=== PATIENT | male | born 1955 | race Caucasian/White ===

== ENCOUNTER 2022-05-23 09:30 | Emergency (ER) | payer MEDICARE, OTHER, SELFPAY ==
--- NOTE | ~2022-05-23 | XR_ITS ---
Lumbosacral Spine: AP and lateral views Clinical History: Pain Findings: The normal lordotic curve is maintained. The vertebral bodies and posterior elements are i ntact. The intervertebral disc spaces are preserved. The sacroiliac joints are normally outlined. Impression: No significant abnormality. Reviewed, dictated and finalized at [facility]. LIANCE AUDITOR Impression: No significant abnormality.
--- NOTE | ~2022-05-23 | XR_ITS ---
AP lateral views of the right hip Clinical history: Pain Findings: No acute fracture or dislocation is seen. Osseous alignment is anatomic. Bilateral hip and SI joint spaces are preserved. Soft tissues are unremarkable. Impression: No significant abnormality is seen. Reviewed, dictated and finalized at location M. [employer] INFORMATICS SPECIALIST Impression: No significant abnormality is seen.
[2022-05-23 09:44] VITALS: BP 138/88; PULSE 81; RESP 20; TEMP 36.5; O2SAT 98
[2022-05-23] MEDS: HYDROcodone/acetaminophen (*CRX) 5-325 MG TABLET 1 TAB PO (10:44)
[2022-05-23 11:14] VITALS: TEMP 36.5
--- NOTE | 2022-05-23 11:40 | ED.GENADULT ---
HPI - General Adult General Chief complaint: Extremity Problem,Nontraumatic Stated complaint: RLE pain Time Seen by Provider: 05/23/22 10:05 Source: patient Mode of arrival: ambulatory Limitations: no limitations History of Present Illness HPI narrative: 66-year-old with a history of hyperlipidemia here with complaints of right hip and right lower back pain for past few days. He denies any trauma. He states the pain was quite intense last night. He denies any bladder or bowel incontinence. No history of blood in the urine. Onset (ago): week(s) (1) Location: lower extremity (Right hip) Radiation: back and extremity Severity: moderate Quality: aching Pain Consistency: constant Relieving factors: none Exacerbating factors: none Associated symptoms: denies other symptoms Related Data Allergies Allergy/AdvReac Type Severity Reaction Status Date / Time No Known Allergies Allergy Mild Verified 05/23/22 09:46 Review of Systems Review of Systems: All systems reviewed & are unremarkable except as noted in HPI and below Constitutional: Constitutional: Reports no additional constitutional complaints Eyes: Eyes: Reports no additional eye complaints ENT: Reports system reviewed and no additional complaints, except as documented Cardiovascular: Cardiovascular: Reports no additional cardiovascular complaints Respiratory: Respiratory: Reports no additional respiratory complaints Gastrointestinal: Gastrointestinal: Reports no additional gastrointestinal complaints Musculoskeletal: Musculoskeletal: Reports as per HPI Neurologic: Reports system reviewed and no additional complaints, except as documented Psychiatric: Psychiatric: Reports no additional psychiatric complaints Exam Narrative: GENERAL: Well-appearing, well-nourished, and in no acute distress. HEAD: Normocephalic, atraumatic. EYES: PERRLA and EOMI. NECK: Supple. CHEST: Clear to auscultation. No respiratory distress. HEART: Regular rate and rhythm. No murmur heard. Normal peripheral pulses. ABDOMEN: Soft, nontender, nondistended, normal active bowel sounds. EXTREMITIES: Normal range of motion. No edema. SLR negative on both sides. SKIN: Warm, dry, no rash. NEURO: No focal deficits. Alert and oriented x3. PSYCH: Normal mood and affect. Course Course Emergency Course: 66-year-old here with complaints right lower back pain radiating into his posterior and lateral aspect of the pain. No history of trauma is exam is unremarkable. X-ray of the lumbar spine and hip was obtained both were unremarkable I suspect this pain most likely could be sciatica pain. Patient is presently feeling slightly better with p.o. [facility] advised him to take Medrol Dosepak and pain medication for few days and follow-up with his primary doctor Vital Signs Vital signs: Vital Signs Temperature 36.5 C 05/23/22 09:44 Pulse Rate 81 05/23/22 09:44 Respiratory Rate 20 05/23/22 09:44 Blood Pressure 138/88 05/23/22 09:44 Pulse Oximetry 98 05/23/22 09:44 Oxygen Delivery Room Air 05/23/22 09:44 Temperature 36.5 C 05/23/22 09:44 Pulse Rate 81 05/23/22 09:44 Respiratory Rate 20 05/23/22 09:44 Blood Pressure 138/88 05/23/22 09:44 Pulse Oximetry 98 05/23/22 09:44 Oxygen Delivery Room Air 05/23/22 09:44 Medical Decision Making MDM Narrative Medical decision making narrative: 66-year-old with low back pain radiating into his hip and thigh area suspect more sciatic pain however will obtain x-ray of the lumbar and hip . Control his pain with p.o. [facility]. Differential Diagnosis Differential Diagnosis: DJD of the lumbar spine, hip arthralgia Medical Records Medical records reviewed: Yes I reviewed the external patient's medical records. Vital Signs Vital Signs: Vital Signs Temperature 36.5 C 05/23/22 09:44 Pulse Rate 81 05/23/22 09:44 Respiratory Rate 20 05/23/22 09:44 Blood Pressure 138/88 05/23/22 09:44 Pulse Oximetry 98 05/23/22
[2022-05-23 12:18] VITALS: BP 148/85; PULSE 59; RESP 18; O2SAT 98
== END 2022-05-23 12:21 | disposition home or self-care (01) ==
PROVIDERS: Emergency Provider Family Medicine; PCP Physician Assistant
DX: M54.41 Lumbago with sciatica, right side (principal); E78.5 Hyperlipidemia, unspecified
CPT/HCPCS: 72110; 73502; 99284; A9270

== ENCOUNTER 2022-10-14 10:25 | Emergency (ER) | payer MEDICARE, OTHER, SELFPAY ==
[2022-10-14 10:36] VITALS: BP 136/77; PULSE 74; RESP 12; TEMP 36.3; O2SAT 100
[2022-10-14 10:37] VITALS: BP 136/77; PULSE 74; RESP 12; TEMP 36.3; O2SAT 100
--- NOTE | 2022-10-14 10:56 | ED.URI ---
HPI - URI/Sore Throat General Chief Complaint: Upper Respiratory Infection Stated Complaint: SOB; dizziness; shakiness Time Seen by Provider: 10/14/22 10:56 Source: patient Mode of arrival: ambulatory Limitations: no limitations History of Present Illness HPI Narrative: 66-year-old male presents with complaint sinus congestion, pressure, headaches, nasal congestion for the past 10 days. Using an payj-hvz-[id number] sinus medication, nasal spray with no relief of symptoms. I think Claritin daily. Afebrile. Reports he is claustrophobic and a feeling of not being able to breathe out of his nose makes him feel panicky. All systems reviewed and negative except as noted above. Related Data Home Medications Medication Instructions Recorded Confirmed omeprazole 40 mg capsule,delayed mg 10/14/22 release rosuvastatin 5 mg tablet mg 10/14/22 Allergies Allergy/AdvReac Type Severity Reaction Status Date / Time No Known Allergies Allergy Mild Verified 10/14/22 10:37 Review of Systems Review of Systems: CONSTITUTIONAL: Denies fever, chills, or sweats. reports fatigue. EYES: Denies visual changes, redness, or discharge. ENT: Reports rhinorrhea, congestion, sinus pressure and pain. Denies sore throat, or otalgia. CARDIOVASCULAR: Denies chest pain, palpitations, or edema. RESPIRATORY: Denies cough or dyspnea. GASTROINTESTINAL: Denies abdominal pain, nausea, vomiting, or diarrhea. GENITOURINARY: Denies dysuria or hematuria. SKIN: Denies rash or itching. MUSCULOSKELETAL: Denies back pain, joint pain, or myalgia. NEUROLOGIC: reports headache. Denies numbness, or weakness. PSYCHIATRIC: Denies anxiety or depression. All other systems reviewed are negative, except as documented in HPI. PMFSH Comments At time of signature, agree with nursing past medical, surgical, social and family history. There is no relevant family history pertinent to the presenting complaint. Exam Narrative: GENERAL: This is a well-nourished, well-developed patient, in no apparent distress. HEAD: normocephalic, atraumatic. EYES: PERRL. Sclera clear/white. Vision is grossly intact. EARS: External ears normal, auditory canals clear and without drainage, fluid to bilateral TM without erythema. NOSE: External nose normal with Purulence nasal drainage, erythema and swelling to both nares. Bilateral maxillary sinus tenderness. THROAT: Mucous membranes moist, erythema, postnasal drainage Posterior pharynx. NECK: Neck supple, non-tender without lymphadenopathy, masses or thyromegaly. CARDIOVASCULAR: Regular rate and rhythm without murmurs, gallops, or rubs. RESPIRATORY: Clear to auscultation. Breath sounds equal bilaterally. No wheezes, rales, or rhonchi. SKIN: warm, Dry, intact with no suspicious lesions or rash, good texture and turgor. NEURO: awake, alert, and oriented to person, place and time. There were no obvious focal neurologic abnormalities. EXTREMITIES: No joint tenderness, effusion, or edema noted. Course Course Level of Care: Express Care Visit Vital Signs Vital signs: Vital Signs Temperature 36.3 C L 10/14/22 10:36 Pulse Rate 74 10/14/22 10:36 Respiratory Rate 12 10/14/22 10:36 Blood Pressure 136/77 10/14/22 10:36 Pulse Oximetry 100 10/14/22 10:36 Oxygen Delivery Room Air 10/14/22 10:36 Temperature 36.3 C L 10/14/22 10:37 Pulse Rate 74 10/14/22 10:37 Respiratory Rate 12 10/14/22 10:37 Blood Pressure 136/77 10/14/22 10:37 Pulse Oximetry 100 10/14/22 10:37 Oxygen Delivery Room Air 10/14/22 10:37 Reviewed MDM - URI/Sore Throat MDM Narrative Medical decision making narrative: Patient is aware of diagnosis, understands and agrees to treatment plan. Anticipatory guidance given. Patient agrees to follow-up as directed and is aware of reasons to seek care at the emergency department. Portions of this record may have been created with voice recognition software wi
== END 2022-10-14 11:04 | disposition home or self-care (01) ==
PROVIDERS: Emergency Provider Nurse Practitioner Family; PCP Physician Assistant
DX: J01.90 Acute sinusitis, unspecified (principal); E78.00 Pure hypercholesterolemia, unspecified; K21.9 Gastro-esophageal reflux disease without esophagitis
CPT/HCPCS: 99213; G0463

== ENCOUNTER 2024-03-22 11:00 | Emergency (ER) | payer MEDICARE, OTHER, SELFPAY ==
--- NOTE | ~2024-03-22 | XR_ITS ---
EXAMINATION: XR ankle RT min 3V DATE: 03/22/2024 11:56 INDICATION: Right ankle pain. TECHNIQUE: 3 views of right ankle were obtained. COMPARISON: None. FINDINGS: Alignment is normal. No fracture. Joint spaces are normal. There is an enthesophyte at the posterior aspect of calcaneal tuberosity. IMPRESSION: 1. No fracture. Reviewed, dictated and finalized at location A. IMPRESSION: 1. No fracture.
[2024-03-22 11:10] VITALS: BP 117/74; PULSE 67; RESP 19; TEMP 36.4; O2SAT 100
--- NOTE | 2024-03-22 12:00 | ED_ITS ---
HPI - Extremity Problem General Chief complaint: Extremity Problem,Nontraumatic Stated complaint: Right Ankle Irritation Time Seen by Provider: 03/22/24 12:00 History of Present Illness HPI Narrative: Patient reports nontraumatic right ankle pain for 6-9 months. He reports that he tried to get appointment with his primary care provider, was advised to come to Urgent Care for x-ray of affected ankle. Patient has not been taking anything for his symptoms Related Data Home Medications Medication Instructions Recorded Confirmed omeprazole 40 mg capsule,delayed 40 mg PO DAILY 10/14/22 03/22/24 release rosuvastatin 5 mg tablet 5 mg PO DAILY 10/14/22 03/22/24 Allergies Allergy/AdvReac Type Severity Reaction Status Date / Time No Known Allergies Allergy Mild Verified 03/22/24 11:11 Review of Systems Review of Systems: All systems reviewed & are unremarkable except as noted in HPI and below Constitutional: Constitutional: Reports no additional constitutional complaints ENT: Reports system reviewed and no additional complaints, except as documented Cardiovascular: Cardiovascular: Reports no additional cardiovascular complaints Respiratory: Respiratory: Reports no additional respiratory complaints Gastrointestinal: Gastrointestinal: Reports no additional gastrointestinal complaints Musculoskeletal: Musculoskeletal: Reports no additional musculoskeletal complaints and Reports as per HPI Exam Const: General: cooperative, no acute distress, alert and awake Orientation/consciousness: oriented to person, oriented to place and oriented to time HENMT: Head: normal to inspection Resp: Effort & Inspection: normal respiratory effort and able to speak in complete sentences Auscultation: clear to auscultation bilaterally, no crackles, no rales, no rhonchi and no wheezes Cardio: Palpation: normal PMI Rate: regular rate Rhythm: regular rhythm Heart sounds: S1 normal heart sound present and S2 normal heart sound present Skin: General skin exam: normal color and no rashes or lesions noted Neuro: General: oriented to person, oriented to place and oriented to time Cranial nerves: Yes CN's II-XII intact bilaterally Extrem: Right lower extremity: normal to inspection, full ROM, normal capillary refill and ankle Details: normal to inspection and normal ROM; no tenderness, no swelling, edema, no unusual warmth, no ecchymosis and achilles tendon exam normal; no edema and joint enlargement noted Psych: Appearance: grossly normal Thought process: Normal thought process present Insight: Good insight present (Psych) Judgement: Good judgement present (Psych) Course Course Level of Care: Express Care Visit Vital Signs Vital signs: Vital Signs Temperature 97.5 F L 03/22/24 11:10 Pulse Rate 67 03/22/24 11:10 Respiratory Rate 19 03/22/24 11:10 Blood Pressure 117/74 03/22/24 11:10 Pulse Oximetry 100 03/22/24 11:10 Oxygen Delivery Room Air 03/22/24 11:10 Temperature 97.5 F L 03/22/24 11:10 Pulse Rate 67 03/22/24 11:10 Respiratory Rate 19 03/22/24 11:10 Blood Pressure 117/74 03/22/24 11:10 Pulse Oximetry 100 03/22/24 11:10 Oxygen Delivery Room Air 03/22/24 11:10 MDM - Extremity (Nontraumatic) MDM Narrative Medical decision making narrative: Patient with no abnormalities on exam of right ankle. He does not want to try any medications. X-ray with no acute findings. Patient agrees to follow with primary care provider. Emergency department for new or worse symptoms. Discharge instructions reviewed with patient, as well as provided in writing per nursing staff. The instructions also include specific and strict return/GO TO THE ER as well as f/u information. All questions have been answered, and the patient deny any further questions with discharge and discharge plan. Some parts of this dictation were generated by voice recognition software and may contain typographical and/or grammatical inaccuracies. Differential Diagnosis Differential diagnosis: Likely gout and cellulitis Imaging Data My impression: neg Radiologist's impression: [facility] [place] [address] [place] [id number] XRay Report Signed Patient: Ney Donovan : 1955 MR#: [id number] Age: 68 Acct:[id number] Loc: [facility] ADM Date: 03/22/24Attending Dr: Ordering Physician: Lcuita Ramirez FNP Date of Service: 03/22/24 Procedure(s): XR ankle RT min 3V Accession Number(s): [id number] cc: Lucita Ramirez FNP; Mohini, Ibeth SALAZAR~ EXAMINATION: XR ankle RT min 3V DATE: 03/22/2024 11:56 INDICATION: Right ankle pain. TECHNIQUE: 3 views of right ankle were obtained. COMPARISON: None. FINDINGS: Alignment is normal. No fracture. Joint spaces are normal. There is an enthesophyte at the posterior aspect of calcaneal tuberosity. IMPRESSION: 1. No fracture. Discharge Plan Discharge Clinical Impression: Ankle pain, right Qualifiers: Chronicity: acute Qualified Code(s): M25.571 - Pain in right ankle and joints of right foot Patient Disposition: Home, Self-Care Condition: Stable Instructions: Antibiotic Form, P.R.I.C.E. Treatment (ED) Additional Instructions: Follow-up with primary care provider, emergency department for new or worse symptoms Prescriptions: No Action omeprazole 40 mg capsule,delayed release(DR/EC) 40 mg PO DAILY rosuvastatin 5 mg tablet 5 mg PO DAILY Follow-up/Referrals: Mohini,RANJIT Cristina [Primary Care Provider] - 1 Week Time of Disposition: 12:08
== END 2024-03-22 12:15 | disposition home or self-care (01) ==
PROVIDERS: Emergency Provider Nurse Practitioner Family; PCP Physician Assistant
DX: M25.571 Pain in right ankle and joints of right foot (principal)
CPT/HCPCS: 73610; 99213; G0463

== ENCOUNTER 2024-08-11 09:28 | Emergency (ER) | payer MEDICARE, OTHER, SELFPAY ==
--- NOTE | 2024-08-11 09:34 | ED.URI ---
HPI - URI/Sore Throat General Chief Complaint: Upper Respiratory Infection Stated Complaint: cold Time Seen by Provider: 08/11/24 09:33 Source: patient Mode of arrival: ambulatory Limitations: no limitations History of Present Illness HPI Narrative: Patient is a 68-year-old male who presents with over 1 week of cough, congestion and hoarseness. Denies any fever, sore throat, chills, nausea, vomiting, diarrhea. Has taken [id number] medicine for relief. States he was started feel better but this morning symptoms were worsening again. Related Data Home Medications ?Medication ?Instructions ?Recorded ?Confirmed ?Last Taken ?Type omeprazole 40 mg capsule,delayed 40 mg PO DAILY 10/14/22 03/22/24 Unknown History release rosuvastatin 5 mg tablet 5 mg PO DAILY 10/14/22 03/22/24 Unknown History Allergies Allergy/AdvReac Type Severity Reaction Status Date / Time No Known Allergies Allergy Mild Verified 03/22/24 11:11 Review of Systems Review of Systems: All systems reviewed & are unremarkable except as noted in HPI and below Constitutional: Constitutional: Denies chills, Denies fatigue, Denies fever(s), Denies headache(s), Denies malaise and Denies weakness Eyes: Eyes: Denies blurry vision, Denies itchy eyes and Denies loss of vision ENT: Denies otalgia, Denies headache(s), Reports hoarseness, Reports nasal congestion, Denies sinus pain and Denies sore throat Cardiovascular: Cardiovascular: Denies chest pain, Denies irregular heart rhythm and Denies dyspnea Respiratory: Respiratory: Reports cough and Denies dyspnea Gastrointestinal: Gastrointestinal: Denies abdominal pain, Denies diarrhea, Denies nausea and Denies vomiting Musculoskeletal: Musculoskeletal: Denies back pain, Denies myalgias and Denies arthralgias Integumentary/Breasts: Skin/Breast: Denies pruritus and Denies rash Neurologic: Denies headache(s), Denies loss of vision and Denies weakness Psychiatric: Psychiatric: Reports no additional psychiatric complaints Endocrine: Endocrine: Denies fatigue Allergic/Immunologic: Allergic/Immunologic: Denies itchy eyes PMFSH Comments At time of signature, agree with nursing past medical, surgical, social and family history. There is no relevant family history pertinent to the presenting complaint. Exam Const: General: cooperative, healthy appearing, comfortable, no acute distress and well nourished Nutritional Appearance: well nourished Orientation/consciousness: patient oriented x3 Limitations: no limitations HENMT: Head: normal to inspection, normocephalic and atraumatic Ears: hearing grossly normal bilaterally, external ears normal, TM's normal bilaterally, EAC's normal and no periauricular adenopathy Face/Nose/Sinus: Normal external nose present, Abnormal mucous membranes and turbinates present erythematous bilateral and diffuse, normal facial exam, sinuses nontender and face symmetric Face and sinus: normal facial exam, sinuses nontender and face symmetric Mouth: Yes Normal oral and palatal mucosa present, Yes lip normal, Yes tongue normal, Yes Normal salivary glands and ducts present, Yes oropharynx normal and Yes moist mucous membranes Teeth and gingiva: dentition normal Throat: posterior oropharynx normal, tonsils normal and uvula midline Eyes: General: appearance normal, both eyes and all related structures Alignment and Position: alignment normal and position normal Periorbital: periorbital findings normal Eyelids: eyelids normal Pupils: Equal, round and reactive pupils present Neck: Neck: normal visual inspection, full ROM, no lymphadenopathy and supple Chest: Chest palpation & inspection: normal inspection of the chest and normal palpation of entire chest wall Resp: Effort & Inspection: normal respiratory effort, able to speak in complete sentences and Actively coughing dry Auscultation: clear to auscultation bilaterally, no crackles, no rales, no rhonchi and no wheezes Cardio: Rate: regular rate Rhythm: regular rhythm Heart sounds: S1 normal heart sound present and S2 normal heart sound present GI: Inspection: normal to inspection Skin: General skin exam: normal color and no rashes or lesions noted Neuro: General: patient oriented x3 and moves all extremities Cranial nerves: Yes Equal, round and reactive pupils present Speech: normal speech Gait exam (Neuro): Normal gait present Extrem: General: normal to inspection, full ROM and no edema Psych: Appearance: grossly normal and well kempt Mental Status: mental status grossly normal Speech and movement: Normal speech and movement present Affect: normal affect Attitude: cooperative Thought process: Normal thought process present Course Course Emergency Course: Discharge instructions reviewed with patient, as well as provided in writing per nursing staff. The instructions also include specific and strict return/GO TO THE ER as well as f/u information. All questions have been answered, and the patient deny any further questions with discharge and discharge plan. Portions of this record may have been created with voice recognition software Level of Care: Express Care Visit Vital Signs Vital signs: Reviewed MDM - URI/Sore Throat MDM Narrative Medical decision making narrative: Pt well hydrated appearing, in no respiratory distress, hemodynamically stable. Recommend supportive care. The patient is stable at time of discharge the clinical impression was discussed and the patient was given the opportunity to ask questions, which were addressed as completely as possible given the information available at present. Anticipatory guidance and return to care precautions were discussed and the importance of primary care follow-up was stressed and encouraged. The patient voiced understanding of the plan, indications to return, and the need for follow-up. Differential diagnosis considered: Bronchitis, Butterfield virus, strep pharyngitis, allergic rhinitis, upper respiratory tract infection, sinusitis, rhinosinusitis, nasopharyngitis. viral pharyngitis, otitis media, otitis externa, otitis effusion, foreign body, cerumen impaction, viral syndrome, and influenza.? Exam findings show no acute concerns or changes; patient is non-toxic appearing and is in no distress.? Patient is appropriate for outpatient treatment and follow-up.? Medical Records Attestation: I reviewed the patient's medical records. Discharge Plan Discharge Clinical Impression: Upper respiratory infection with cough and congestion Patient Disposition: Home, Self-Care Condition: Stable Instructions: Upper Respiratory Infection (ED) Additional Instructions: Take antibiotic as prescribed. Take steroids in the morning with food. Use Tessalon Perles as needed for cough. Use inhaler with spacer as needed. Other symptomatic treatments include: -Alternate Tylenol and Motrin per package directions for fever or pain: Tylenol 650-1000mg by mouth every 4-6 hours. Do not exceed 4000mg in 24 hours. Advil (Ibuprofen) 600 mg by mouth every 6 hours. Do not exceed 2400mg in 24 hours. 8 AM: Tylenol 11 AM: Ibuprofen 2 PM: Tylenol 5 PM: Ibuprofen 8 PM: Tylenol 11 PM: Ibuprofen 2 AM: Tylenol 5 AM: Ibuprofen -Antihistamine medication such as Benadryl at night and Zyrtec/Claritin/Rivka during the day can help improve symptoms. -Use Flonase twice a day for 5 days then daily to help reduce the inflammation and dry up your sinuses. -You can also use Sudafed or Mucinex. Be sure to drink plenty of water with these medications at least 8 ounces with every dose and it is important to drink 8 to 10 glasses of water per day. Water is a natural decongestant -Eat and drink things that are easy to swallow, like tea or soup, or popsicles. -Oral rinses such as: Salt water gargles and/or may use topical anesthetic (eg. Chloraseptic spray) or lozenges to relieve dryness or throat pain). -Frequent hand washing or hand healthcare account manager is one of the best ways to prevent spread of infection. -Using a vaporizer or humidifier at night will also help thin secretions and help with coughing up phlegm. Call your Primary Care Doctor and make a follow-up appointment in 3 days. If your cough worsens, you develop a fever greater than 103, you develop shaking chills, a fast heartbeat, trouble breathing and/or feel you are are breathing much faster than usual, call your Primary Care Doctor or go to the ER. Patient Language: Palauan Prescriptions: New azithromycin 250 mg tablet See Rx Instructions .ROUTE .COMPLEX Qty: 6 0RF Rx Instructions: For 250 mg dose pack: take 500 mg today (day 1), then 250 mg for 4 days (days 2-5) benzonatate 100 mg capsule 100 mg PO BID PRN (Reason: cough) Qty: 14 0RF methylprednisolone [Medrol (Marcelino)] 4 mg tablets,dose pack See Rx Instructions .ROUTE .COMPLEX Qty: 21 0RF Rx Instructions: orally per package directions albuterol sulfate 90 mcg/actuation HFA aerosol inhaler 2 puff inhalation QID PRN (Reason: shortness of breath or wheezing) Qty: 6.7 0RF (DME) Aerochamber MV Spacer See Rx Instructions .Route Qty: 1 0RF Rx Instructions: As directed No Action omeprazole 40 mg capsule,delayed release(DR/EC) 40 mg PO DAILY rosuvastatin 5 mg tablet 5 mg PO DAILY Follow-up/Referrals: Mohini,RANJIT Cristina [Primary Care Provider] - 3 Days Time of Disposition: 10:05
[2024-08-11 09:37] VITALS: BP 122/74; PULSE 96; RESP 16; TEMP 36.4; O2SAT 98
== END 2024-08-11 10:10 | disposition home or self-care (01) ==
PROVIDERS: Emergency Provider Nurse Practitioner Family; PCP Physician Assistant
DX: J06.9 Acute upper respiratory infection, unspecified (principal); R05.9 Cough, unspecified; E78.00 Pure hypercholesterolemia, unspecified; K21.9 Gastro-esophageal reflux disease without esophagitis
CPT/HCPCS: 99213; G0463

== ENCOUNTER 2024-09-18 10:34 | Emergency (ER) | payer MEDICARE, OTHER, SELFPAY ==
[2024-09-18 10:50] VITALS: BP 124/77; PULSE 78; RESP 12; TEMP 37.1; O2SAT 100
--- NOTE | 2024-09-18 13:03 | ED_ITS ---
HPI - Skin/Abscess/Foreign Bdy General Chief complaint: Skin/Abscess/Foreign Body Stated complaint: Rash All Over Body Time Seen by Provider: 09/18/24 11:45 Source: patient and RN notes reviewed Mode of arrival: ambulatory Limitations: no limitations History of Present Illness HPI narrative: 68-year-old male presents Express Care complaining of a rash for 1 week. This patient states that he noticed a pruritic rash on his right lower leg after doing yd work 1 week ago. Patient says he is sensitive to poison serena however he does not believe he was in contact with any poison serena or poison oak. He has been putting cortisone on his leg. Patient said since then the rash has spread throughout his body and onto the palm of his hands. Patient denies any fevers, chills, body aches, muscle aches. Patient denies any bug bites or tick bites. Patient denies any sores on the soles of his feet are in his mouth. Patient denies any breathing problems or swelling. Related Data Home Medications ?Medication ?Instructions ?Recorded ?Confirmed ?Last Taken ?Type omeprazole 40 mg capsule,delayed 40 mg PO DAILY 10/14/22 03/22/24 Unknown History release rosuvastatin 5 mg tablet 5 mg PO DAILY 10/14/22 03/22/24 Unknown History Allergies Allergy/AdvReac Type Severity Reaction Status Date / Time No Known Allergies Allergy Mild Verified 09/18/24 10:51 Review of Systems Review of Systems: CONSTITUTIONAL: Denies fever, chills, or sweats. EYES: Denies visual changes, redness, or discharge. ENT: Denies rhinorrhea, congestion, sore throat, or otalgia. CARDIOVASCULAR: Denies chest pain, palpitations, or edema. RESPIRATORY: Denies cough or dyspnea. GASTROINTESTINAL: Denies abdominal pain, nausea, vomiting, or diarrhea. GENITOURINARY: Denies dysuria or hematuria. SKIN: Positive for rash and itching. MUSCULOSKELETAL: Denies back pain, joint pain, or myalgia. NEUROLOGIC: Denies headache, numbness, or weakness. PSYCHIATRIC: Denies anxiety or depression. All other systems reviewed are negative, except as documented in HPI. PMFSH Comments At the time of my signature, I reviewed and agree with the nursing past medical, surgical, social, and family history. There is no relevant family history pertinent to the patient complaint. Exam Narrative: GENERAL: This is a well-nourished, well-developed adult, in no apparent distress. They are non ill-appearing, nontoxic appearing. HEAD: normocephalic, atraumatic. EYES: Sclera clear/white. Vision is grossly intact. Extraocular movements intact. EARS: External ears normal, Hearing grossly intact. NOSE: External nose normal THROAT: Mucous membranes moist, posterior pharynx clear without swelling, r edness, or sores. Uvula midline NECK: Neck supple, non-tender without lymphadenopathy, masses or thyromegaly. CARDIOVASCULAR: Regular rate and rhythm RESPIRATORY: Respiratory rate normal, respiratory effort nonlabored, no respiratory distress GASTROINTESTINAL: Abdomen soft, non-tender, nondistended. SKIN: Pruritic papular scattered throughout the patient's bilateral palms of the hands, legs and arms. Scant pruritic papular rash on patient's lower abdomen and back. No erythema, area of fluctuance, or induration. No discharge. NEURO: awake, alert, and oriented to person, place and time. There were no obvious focal neurologic abnormalities. EXTREMITIES: No joint tenderness, effusion, or edema noted. Course Course Level of Care: Express Care Visit Vital Signs Vital signs: Vital Signs Temperature 98.7 F 09/18/24 10:50 Pulse Rate 78 09/18/24 10:50 Respiratory Rate 12 09/18/24 10:50 Blood Pressure 124/77 09/18/24 10:50 Pulse Oximetry 100 09/18/24 10:50 Temperature 98.7 F 09/18/24 10:50 Pulse Rate 78 09/18/24 10:50 Respiratory Rate 12 09/18/24 10:50 Blood Pressure 124/77 09/18/24 10:50 Pulse Oximetry 100 09/18/24 10:50 Reviewed MDM - Skin/Abscess/Foreign Bdy MDM Narrative Medical decision making narrative: It is likely patient has a contact dermatitis secondary to poison serena from working outside in the yard a week ago. Patient denies any bug bites or tick bites or any sick symptoms. Will treat with a steroid Dosepak. Discussed physical exam findings. Advised supportive measures and signs/symptoms to go to the ER. Pt is appropriate for outpt treatment and f/u. Differential Diagnosis Differential diagnosis: Likely viral exanthem, cellulitis and other (contact dermatitis) Critical Care Time Critical Care Time Critical Care Time: No Discharge Plan Discharge Clinical Impression: Contact dermatitis Qualifiers: Contact dermatitis type: unspecified Contact dermatitis trigger: unspecified trigger Qualified Code(s): L25.9 - Unspecified contact dermatitis, unspecified cause Patient Disposition: Home Condition: Stable Instructions: Antibiotic Form, Contact Dermatitis (ED) Additional Instructions: Take steroids as directed. Please take them in the morning and taken with food. Please follow-up with your doctor in 1-2 weeks. If he develops any muscle aches, body aches, chills, fevers or any other concerns please go to the ER immediately. Patient Language: Iranian Prescriptions: New prednisone 10 mg tablet See Rx Instructions .ROUTE .COMPLEX Qty: 41 0RF Rx Instructions: 6 tablets by mouth today then 4 tablets by mouth for 5 days then 2 tablets by mouth for 5 days then 1 tablet by mouth for 5 days No Action albuterol sulfate 90 mcg/actuation HFA aerosol inhaler 2 puff inhalation QID PRN (Reason: shortness of breath or wheezing) Qty: 6.7 0RF (DME) Aerochamber MV Spacer See Rx Instructions .Route Qty: 1 0RF Rx Instructions: As directed omeprazole 40 mg capsule,delayed release(DR/EC) 40 mg PO DAILY rosuvastatin 5 mg tablet 5 mg PO DAILY Follow-up/Referrals: Mohini,RANJIT Cristina [Primary Care Provider] - Time of Disposition: 11:55
== END 2024-09-18 12:00 | disposition home or self-care (01) ==
PROVIDERS: PCP Physician Assistant
DX: L25.9 Unspecified contact dermatitis, unspecified cause (principal); E78.00 Pure hypercholesterolemia, unspecified; K21.9 Gastro-esophageal reflux disease without esophagitis
CPT/HCPCS: 99213; G0463

== ENCOUNTER 2024-09-26 10:00 | Emergency (ER) | payer MEDICARE, OTHER, SELFPAY | END 2024-09-26 11:10 | disposition home or self-care (01) | LOC: EXPCOLL 09-29 14:43 | PROVIDERS: Emergency Provider Nurse Practitioner Family; PCP Physician Assistant | DX: S39.011A Strain of muscle, fascia and tendon of abdomen, initial encounter (principal); S30.1XXA Contusion of abdominal wall, initial encounter; X50.0XXA Overexertion from strenuous movement or load, initial encounter; Y93.75 Activity, martial arts; K21.9 Gastro-esophageal reflux disease without esophagitis; E78.00 Pure hypercholesterolemia, unspecified | CPT/HCPCS: 99212; G0463 ==

== ENCOUNTER 2024-10-08 13:02 | Outpatient (CLI) | payer MEDICARE, OTHER, SELFPAY ==
--- NOTE | ~2024-10-08 | US_ITS ---
US soft tissue groin RT 10/08/2024 13:41 Indication: Right groin pain Procedure: High-resolution ultrasound of the right groin Comparison: No prior studies for comparison. Findings: Normal soft tissues without evidence for hernia or mass. Impression: 1: Normal soft tissue ultrasound of the right groin. No evidence for hernia, mass or cyst. Reviewed, dictated and finalized at location A. Impression: 1: Normal soft tissue ultrasound of the right groin. No evidence for hernia, ma ss or cyst.
== END 2024-10-08 13:03 | disposition home or self-care (01) ==
LOC: MICIMG 13:03
PROVIDERS: PCP Physician Assistant; Visit Provider Physician Assistant
DX: R10.31 Right lower quadrant pain (principal); K40.90 Unilateral inguinal hernia, without obstruction or gangrene, not specified as recurrent
CPT/HCPCS: 76882